=== PATIENT | female | born 1975 | race Two or more races ===

== ENCOUNTER 2025-09-22 12:30 | Day surgery (SDC) | payer MEDICAID, SELFPAY ==
[2025-09-19 12:29] LABS: Basophils # (Auto) 0.1 Thou/mm3 (0.0-0.2); Basophils % (Auto) 1 % (0-2.5); Eosinophils # (Auto) 0.1 Thou/mm3 (0.0-0.5); Eosinophils % (Auto) 1 % (0-10); Hematocrit 30.7 % (36.0-46.0); Hemoglobin 8.9 g/dL (12.0-16.0); Immature Granulocytes Auto 0.03 Thou/mm3 (0.00-0.00); Lymphocytes # (Auto) 1.7 Thou/mm3 (1.0-4.8); Lymphocytes % (Auto) 21 % (10-50); Mean Corpuscular HGB Conc 29.0 g/dl (31.0-37.0); Mean Corpuscular Hemoglobin 19.5 pg (25.0-35.0); Mean Corpuscular Volume 67 fL (80-100); Monocytes # (Auto) 0.6 Thou/mm3 (0.0-0.8); Monocytes % (Auto) 7 % (0-12); Neutrophils # (Auto) 5.9 Thou/mm3 (1.8-7.7); Neutrophils % (Auto) 70 % (37-80); Nucleated Red Blood Cell # 0.00 Thou/mm3 (0.00-0.00); Nucleated Red Blood Cell % 0 /100 WBC (0); Platelet Count 486 Thou/mm3 (140-440); RDW Standard Deviation 40.2 fL (36.4-46.3); Red Blood Count 4.57 Miln/mm3 (4.00-5.20); White Blood Count 8.4 Thou/mm3 (3.6-11.0)
[2025-09-19 12:30] LABS: HCG Qualitative,Urine Negative
[2025-09-19 12:36] LABS: Alanine Aminotransferase 11 U/L (10-49); Albumin, Serum 4.9 gm/dL (3.5-5.0); Albumin/Globulin Ratio 1.8 (1.2-2.2); Alkaline Phosphatase 64 U/L (46-116); Anion Gap 7 (7-16); Aspartate Amino Transferase 22 U/L (0-34); BUN/Creatinine Ratio 10 Ratio (12-20); Bilirubin,Total 0.5 mg/dL (0.3-1.2); Blood Urea Nitrogen 10 mg/dL (9-23); Calcium 9.5 mg/dL (8.3-10.6); Calcium (Corrected) 9.5 mg/dL (8.5-10.1); Carbon Dioxide 26.1 mMol/L (20.0-31.0); Chloride 108 mMol/L (98-107); Creatinine (Component) 1.0 mg/dL (0.6-1.3); Globulin 2.7 gm/dL (2.3-3.5); Glucose 101 mg/dL (74-106); Osmolality,Calculated 280 (275-295); Potassium 5.0 mMol/L (3.4-5.1); Sodium 141 mMol/L (136-145); Total Protein 7.6 gm/dL (5.7-8.2); eGFR > 60 See Note
[2025-09-19 12:42] LABS: INR 1.0 (0.9-1.3); Partial Thromboplastin Time 26.7 Seconds (22.0-36.0); Prothrombin Time 10.7 Seconds (9.0-12.2)
[2025-09-19 15:28] VITALS: BMI 37.2
[2025-09-22 13:03] VITALS: BP 162/83; PULSE 77; RESP 20; TEMP 36.7; O2SAT 100; BMI 37.9
[2025-09-22] MEDS: RINGERS LACTATED 500 ML 500 ML 20 ML IV (13:50)
[2025-09-22 13:59] VITALS: BP 120/74; PULSE 72; RESP 12; TEMP 36.4; O2SAT 99
[2025-09-22 14:09] VITALS: BP 124/75; PULSE 58; RESP 14; O2SAT 99
--- NOTE | 2025-09-22 14:17 | SUR.PREOP ---
PREOP PT, ASKED PT IF I NEED TO USE [employer] AND CAN SUPPLY, SHE STATES SHE UNDERSTANDS EVERYTHING IN [facility]
[2025-09-22 14:19] VITALS: BP 128/74; PULSE 59; RESP 14; O2SAT 100
[2025-09-22 14:29] VITALS: BP 131/81; PULSE 59; RESP 15; TEMP 36.4; O2SAT 100
--- NOTE | 2025-09-22 15:05 | SUR.PHASEII ---
1429 Pt more awake and alert. Denies pain or N/V. Abd remains soft. Maegan PO fluids. 1500 Pt assessment unchanged. No complaints. Amb with steady gait. Daughter assisting pt with getting dressed. DC instructions given. Both state understanding. Pt meets dc criteria-to home.
== END 2025-09-22 15:00 | disposition home or self-care (01) ==
PROVIDERS: Anesthesiology; Referring Provider Surgery; Visit Provider Surgery
PROC: 0DBE8ZX Excision of Large Intestine, Via Natural or Artificial Opening Endoscopic, Diagnostic (ICD-10-PCS; CPT 45380; principal; 2025-09-22 13:45)
DX: Z12.11 Encounter for screening for malignant neoplasm of colon (principal)
CPT/HCPCS: 45378; 36415; 80053; 81025; 85025; 85610; 85730; A4649; J7120